=== PATIENT | female | born 1955 | race Caucasian/White ===

== ENCOUNTER 2017-05-09 16:45 | Outpatient (CLI) | payer BC ==
[2017-05-09 17:44] LABS: Hematocrit 41.6 % (36.0-47.0); Mean Platelet Volume 7.3 fL (7.4-10.4); Red Blood Cell (RBC) Count 4.58 mill/uL (4.20-5.40); White Blood Cell (WBC) Count 6.8 thou/uL (4.8-10.8)
[2017-05-09 17:49] LABS: PTT 32.6 SEC (22.9-36.1); Prothrombin Time 14.6 SEC (12.0-14.7)
[2017-05-09 18:06] LABS: Anion Gap 9 mmol/L (10-20); BUN (Urea Nitrogen) 12 mg/dL (9.8-20.1); Calc. Creatinine Clearance 0 mL/min (70-130); Carbon Dioxide 29 mmol/L (23-31); Chloride 102 mmol/L (98-107); Estimated GFR-MDRD 82
== END 2017-05-09 16:46 | disposition home or self-care (01) ==
LOC: LABBT 16:45
PROVIDERS: ATTEND Neurological Surgery
DX: Z01.812 Encounter for preprocedural laboratory examination (principal); M54.16 Radiculopathy, lumbar region; M48.061 Spinal stenosis, lumbar region without neurogenic claudication
CPT/HCPCS: 80048; 85027; 85610; 85730

== ENCOUNTER 2017-05-12 05:34 | Day surgery (SDC) | payer BC ==
--- NOTE | 2017-05-03 09:08 | HP ---
HISTORY OF PRESENT ILLNESS: Ms. Asif is a 61-year-old female that presents with low back pain and left-sided numbness, tingling, and mild weakness in the S1 dermatome. The pain is worse on the left than the right. She has had back pain for the past 10 years, but this has gotten much worse since 07/2016. She has had epidural steroid injection in several medial branch blocks at L3-S1 with Dr. Erik porter and that has helped to relieve some of the pain by about 50%. She has had no physical therapy, but works out daily and goes on mountain hiking trips with her , has no problems with the yahir n that is made worse with lying down and standing and made somewhat better when she is sitting and wilson s her feet propped up. 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 REVIEW OF SYSTEMS: Ten-point review of systems completed, otherwise negative unless stated in the ab ove HPI. 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 HOSPITALIZATIONS: Surgery. FAMILY HISTORY: Father is , diagnosed with heart disease. Mother is . Siblings are alive. SOCIAL HISTORY: The patient is a nonsmoker. She is a professor of [employer]. She is and has 2 children. MEDICATIONS: Taking levothyroxine sodium, spironolactone, estradiol. ALLERGIES: SULFA MEDICATIONS. PHYSICAL EXAMINATION: HEENT: Normocephalic, atraumatic. Hearing intact. Moist mucous membranes. Trachea is midline. Ey es: Pupils are equal and reactive to light. Extraocular muscles are intact. Sclerae is white and n onicteric. PSYCHIATRIC: Normal mood and affect. CARDIOVASCULAR/CARDIOPULMONARY: Regular rate and rhythm, normal S1 and S2 heart sounds. No distal c yanosis or clubbing noted. Intact pedal pulses bilaterally. MUSCULOSKELETAL: Lower extremity strength 5/5 in bilateral iliopsoas, quadriceps, hamstrings, right tibialis anterior, and extensor hallucis longus. Sensory deficit in the left S1 dermatome, tender to palpation on the left buttocks. RESPIRATORY: Even respirations, good effort in all lung castañeda, sound clear with no wheezing or crac kles. NEUROLOGIC: Cranial nerves II-XII are grossly intact. Speech is fluent. She answers my questions a ppropriately. She has normal gait and station. IMAGING: Flexion and extension x-rays are stable. MRI L4-L5 lateral recess disease bilaterally. Fabrizio villa had x-rays and MRI at [facility] in [place] through [facility]. ASSESSMENT: 1. Lumbar radiculopathy. 2. Spinal stenosis of lumbar region with neurogenic claudication. 3. Lumbar radiculopathy. PLAN: Dr. Johns offered laminectomy at L4-L5 without fusion. Informed consent was given and dis cussed the indications, risks, benefits, alternatives, and expected results from surgery. The risks discussed included, but were not limited to bleeding, infection, CSF leak, nerve damage, weakness, in continence, cauda equina injury, arachnoiditis, paralysis, ventilator dependence, wheelchair dependen ce, loss of vision, cardiopulmonary complications of anesthesia or . Long-term complications di scussed included, but were not limited to spinal instability and future surgery.
[2017-05-09 17:05] VITALS: BMI 21.6
[2017-05-12] MEDS ORDERED: Sodium Chloride 0.9% 10 ML ONE (06:17)
[2017-05-12] MEDS ORDERED: Thrombin 5000 UNITS/5 ML VIAL ONE (06:17)
[2017-05-12] MEDS ORDERED: Bupivacaine/Epinephrine 0.25% 30 ML VIAL ONE (06:17)
[2017-05-12] MEDS ORDERED: Albumin 5% 0 ML ONE (06:44)
[2017-05-12] MEDS ORDERED: Phenylephrine 10 MG/NS 250 ML 0 ML ONE (06:44)
[2017-05-12] MEDS ORDERED: Midazolam HCl 2 mg/2 ml Vial ONE (06:48)
[2017-05-12] MEDS ORDERED: CEFAZOLIN/Water 2 GM/20 ML SYRINGE ONE (06:48)
[2017-05-12] MEDS ORDERED: Fentanyl 250 MCG/5 ML VIAL ONE (07:02)
[2017-05-12] MEDS ORDERED: Ondansetron HCl/PF 4 MG/2 ML Vial IVP PRN (09:30)
[2017-05-12] MEDS ORDERED: Promethazine HCl 25 MG/ML VIAL IM/IV PRN (09:30)
[2017-05-12] MEDS ORDERED: Fentanyl 100 MCG/2 ML VIAL ONE (09:50)
[2017-05-12] MEDS ORDERED: Non-Formulary Medication 1 EACH PO PRN (09:55)
--- NOTE | 2017-05-12 10:07 | OP ---
DATE OF PROCEDURE: 05/12/2017 SURGEON: Odalys Johns M.D. WAREHOUSE RECEIVING CLERK: Leonid Mejia PA-C. PREOPERATIVE INDICATION: Treat pain, prevent neurological deterioration. PREOPERATIVE DIAGNOSES: Lateral recess stenosis, L4-L5, with bilateral L5 radiculopathies. POSTOPERATIVE DIAGNOSES: Lateral recess stenosis, L4-L5, with bilateral L5 radiculopathies. OPERATIVE PROCEDURE: Decompressive laminectomy, medial facetectomy, foraminotomy L4-L5. PREOPERATIVE MEDICATION: Ancef 2 grams IV. DRAIN NUMBER: Zero. DRAIN TYPE: None. OPERATIVE DICTATION: The patient was brought to the operating room. General endotracheal anesthesia was induced. The patient was positioned prone with her chest and hips supported by gel-filled chest rolls. A lateral fluoro radiograph was used to plan our incision. The lumbar skin was sterilely pr epped and draped. We opened with a 10 blade knife and controlled bleeding with bipolar and monopolar cautery. We used monopolar cautery to dissect through the subcutaneous tissues to the thoracodorsal fascia. We incised the fascia in the midline and reflected the paraspinal muscles off the spinous p rocess and lamina of L4 and L5. We placed the self-retaining retractors and took a lateral fluoro ra diograph to confirm the levels upon which we were operating. We then removed the majority of the spi nous process of L4 and the superior portion of the spinous process of L5. With the Kerrison rongeur we fashioned our laminectomy at L4-L5. We widened our laminectomy defect until we were flush with L4 and L5 pedicles. We identified the traversing L5 nerve root and exiting L4 nerve roots. We perform ed foraminotomy over the L4 nerve roots. We decompressed the lateral recesses by undermining the fac et joints with Kerrison rongeurs until the L5 nerve roots were quite free. We performed foraminotomi es over these nerve root was well. We irrigated copiously with bacitracin irrigation. A Chaparro ball probe was passed out each neural foramen with the nerve roots with no impingement whatsoever. We in fused local anesthetic in the paraspinal muscles and irrigated one more time with bacitracin irrigati on and closed the wound in anatomic layers. We applied a sterile dressing. This was a clean case an d no contamination.
[2017-05-12] MEDS ORDERED: Morphine 4 MG/ML VIAL ONE (10:36)
[2017-05-12] MEDS ORDERED: Promethazine HCl 25 MG/ML VIAL ONE (10:36)
[2017-05-12] MEDS ORDERED: Dexamethasone 20 MG/5 ML VIAL ONE (15:27)
[2017-05-12] MEDS ORDERED: Propofol 200 MG/20 ML VIAL ONE (15:27)
[2017-05-12] MEDS ORDERED: Ondansetron HCl/PF 4 MG/2 ML Vial ONE (15:27)
[2017-05-12] MEDS ORDERED: ePHEDrine/0.9% NaCl/PF SYRINGE 50 mg/10 ml ONE (15:27)
[2017-05-12] MEDS ORDERED: Glycopyrrolate 0.2 MG/ML 5 ML SYRINGE ONE (15:27)
[2017-05-12] MEDS ORDERED: Lidocaine 1% PF 5 ML VIAL ONE (15:27)
[2017-05-12] MEDS ORDERED: Vecuronium 10 MG VIAL ONE (15:27)
== END 2017-05-12 13:45 | disposition home or self-care (01) ==
LOC: SDC 05:34
PROVIDERS: ATTEND Neurological Surgery
PROC: 01NB0ZZ Release Lumbar Nerve, Open Approach (ICD-10-PCS; principal; 2017-05-12)
DX: M48.061 Spinal stenosis, lumbar region without neurogenic claudication (principal); M54.16 Radiculopathy, lumbar region; Z79.890 Hormone replacement therapy; Z79.899 Other long term (current) drug therapy; Z88.2 Allergy status to sulfonamides; Z98.890 Other specified postprocedural states
CPT/HCPCS: 76001; 96374; 96375; A4216; J0131; J1100; J2001; J2250; J2270; J2405; J2550; J2704; J3010; J3370; J3490; P9045